=== PATIENT | male | born 1995 | race American Indian/Alaskan Native ===

== ENCOUNTER 2017-01-02 19:53 | Emergency (ER) | payer OTHER, BC ==
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
[2017-01-03 01:57] VITALS: BP 139/95
== END 2017-01-03 01:54 | disposition home or self-care (01) ==
LOC: ED 19:53
DX: S10.93XA Contusion of unspecified part of neck, initial encounter (principal); V89.2XXA Person injured in unspecified motor-vehicle accident, traffic, initial encounter; Y92.488 Other paved roadways as the place of occurrence of the external cause; Y93.89 Activity, other specified; Y99.8 Other external cause status
CPT/HCPCS: 72040; 72100; 99283